=== PATIENT | female | born 1970 | race Two or more races ===

== ENCOUNTER 2023-10-25 10:30 | Inpatient (IN) | payer OTHER ==
[~2023-10-25] VITALS: Ht 154.9 cm; Wt 73.9 kg
[~2023-10-25 10:30] MED LIST: AMBIEN10 MG PO; Colace 100MG PO; NORCO 5/325 TAB1 TAB PO
[2023-10-25] MEDS ORDERED: GRALISE600 MG PO (12:39)
[2023-10-25] MEDS ORDERED: TRAZODONE HCL100 MG PO (12:40)
[2023-10-25] MEDS ORDERED: TENORMIN50 M1 PO (12:40)
[2023-10-25] MEDS ORDERED: ACID REDUCER20 M1 PO (12:40)
[2023-10-25] MEDS ORDERED: ZOLOFT100 MG PO (12:40)
[2023-10-25] MEDS ORDERED: PHENERGAN25 MG PO (12:41)
[2023-10-25] MEDS ORDERED: REPATHA SU140 MG/1 M SUBCUTANEO (12:42)
[2023-10-25] MEDS ORDERED: KEVZARA200 MG/1.2 (12:42)
[2023-10-25] MEDS ORDERED: FOLIC ACID0.8 M1 PO (12:43)
[2023-10-25] MEDS ORDERED: B12 ACTIVE1000 MCG PO (12:43)
[2023-10-30] MEDS ORDERED: HYDROXYCHLOROQ200 MG (08:54)
[2023-10-30] MEDS ORDERED: DIVALPROEX SOD500 MG (08:54)
[2023-10-30] MEDS ORDERED: ATORVASTATIN CA40 MG (08:54)
[2023-10-30] MEDS ORDERED: OMEPRAZOLE20 MG (08:55)
[2023-10-30] MEDS ORDERED: MELOXICAM15 MG (09:16)
[2023-10-30] MEDS ORDERED: GABAPENTIN600 MG (09:16)
[2023-10-30] MEDS ORDERED: TIZANIDINE HCL4 MG (09:16)
[2023-10-30] MEDS ORDERED: SERTRALINE HCL50 MG (09:17)
[2023-10-30] MEDS ORDERED: REPATHA SY140 MG/1 M (09:17)
[2023-10-30] MEDS ORDERED: BOTOX200 UNIT (09:17)
[2023-10-30] MEDS ORDERED: NORFLEX100MG (09:17)
[2023-10-30] MEDS ORDERED: METHOTREXATE2.5 MG (09:17)
[2023-10-30] MEDS ORDERED: VANCOMYCIN HCL 1,000 MG VIAL ONE (09:49)
[2023-10-30] MEDS ORDERED: CEFAZOLIN SODIUM 1,000 MG VIAL ONE ×2 (09:49→16:27)
[2023-10-30] MEDS ORDERED: ACETAMINOPHEN-1 EAC2 PO (10:41)
[2023-10-30] MEDS ORDERED: MEDROLPACK PO (10:42)
[2023-10-30] MEDS ORDERED: AMOX-CLAV 875-1 EACH PO (10:42)
[2023-10-30] MEDS ORDERED: GABAPENTIN100 M2 PO (10:43)
[2023-10-30] MEDS ORDERED: COLACE100 MG PO (10:43)
[2023-10-30] MEDS ORDERED: NEURONTIN800 MG PO (10:44)
[2023-10-30] MEDS ORDERED: ENALAPRILAT DIHYDRATE 1.25 MG/ML VIAL IV PRN (11:00)
[2023-10-30] MEDS ORDERED: PROMETHAZINE HCL 50 MG/ML AMPUL IM PRN (11:00)
[2023-10-30] MEDS ORDERED: 0.9 % SODIUM CHLORIDE 1,000 ML IV SCH (11:00)
[2023-10-30] MEDS ORDERED: IOVERSOL 320 MG/ML - 50 ML VIAL IV ONE ×2 (11:34→13:15)
[2023-10-30] MEDS ORDERED: METHYLPREDNISOLONE ACETATE 80 MG/ML VIAL ONE (11:34)
[2023-10-30] MEDS ORDERED: MORPHINE SULFATE 4 MG/ML CARTRIDGE IV SCH (13:00)
[2023-10-30] MEDS ORDERED: DOCUSATE SODIUM 100MG CAP PO SCH (13:00)
[2023-10-30] MEDS ORDERED: CEFAZOLIN SODIUM 1,000 MG VIAL IV ONE (13:15)
[2023-10-30] MEDS ORDERED: VANCOMYCIN HCL 1,000 MG VIAL IV ONE (13:15)
[2023-10-30] MEDS ORDERED: METHYLPREDNISOLONE SOD SUCC 125 MG VIAL IV ONE ×2 (13:15)
[2023-10-30] MEDS ORDERED: VANCOMYCIN HCL 1,000 MG VIAL IR ONE (13:15)
[2023-10-30] MEDS ORDERED: METHYLPREDNISOLONE ACETATE 80 MG/ML VIAL IJ ONE (13:15)
[2023-10-30] MEDS ORDERED: METHYLPREDNISOLONE SOD SUCC 125 MG VIAL ONE (16:28)
[2023-10-30] MEDS ORDERED: ATENOLOL 50 MG TABLET PO SCH (17:00)
[2023-10-30] MEDS ORDERED: FAMOtidine 20 MG TABLET PO SCH (17:00)
[2023-10-30] MEDS ORDERED: CEFAZOLIN SODIUM 1,000 MG in 0.9 % SODIUM CHLORIDE 50 ML IV SCH (17:00)
[2023-10-30] MEDS ORDERED: METHYLPREDNISOLONE SOD SUCC 125 MG VIAL IV SCH (17:00)
[2023-10-30] MEDS ORDERED: VANCOMYCIN HCL 1,000 MG VIAL IV SCH (21:00)
[2023-10-30] MEDS ORDERED: GABAPENTIN 800 MG TABLET PO SCH (21:00)
[2023-10-30] MEDS ORDERED: DIPHENHYDRAMINE HCL 50 MG/ML VIAL 1ML IV SCH (21:00)
[2023-10-30] MEDS ORDERED: TRAZODONE HCL 50 MG TABLET PO SCH (21:00)
[2023-10-31] MEDS ORDERED: SODIUM CHLORIDE 0.45 % 1,000 ML IV SCH
[2023-10-31] MEDS ORDERED: ACETAMINOPHEN WITH CODEINE 1 UDTAB TABLET PO PRN (05:00)
[2023-10-31 07:00] LABS: CALCIUM 8.5 mg/dL (8.5-10.1); CREATININE SERUM 0.87 mg/dL (0.55-1.02); GFR 68.64; HEMATOCRIT 31.1 % (36.0-45.00); HEMOGLOBIN 10.9 g/dL (12.0-15.00); MEAN CELL VOLUME 94.8 fL (80.00-100.00); MEAN CORPUSCULAR HEMOGLOBIN 33.3 pg (27.00-32.0); MEAN CORPUSCULAR HGB CONC 35.1 g/dl (32.0-36.0); PLATELET COUNT 208 K/uL (150-450); POTASSIUM 4.43 mEq/L (3.5-5.1); RED BLOOD COUNT 3.28 M/uL (4.00-6.00); RED CELL DISTRIBUTION WIDTH 12.9 % (11.5-14.5)
[2023-10-31] MEDS ORDERED: TAMSULOSIN HCL 0.4 MG CAP PO SCH (09:00)
[2023-10-31] MEDS ORDERED: SERTRALINE HCL 100 MG TABLET PO SCH (09:00)
== END 2023-11-01 08:46 | disposition home or self-care (01) | DRG 455 ==
LOC: O/R 10-30 06:43 → PED 10-30 06:43 → SURH 10-30 10:30 → PED 10-30 15:01 → SURH 10-30 15:30 → PED 11-01 08:46
PROVIDERS: ADMIT Orthopaedic Surgery Orthopaedic Surgery of the Spine; ATTEND Orthopaedic Surgery Orthopaedic Surgery of the Spine
PROC: 0SG1071 Fusion of 2 or more Lumbar Vertebral Joints with Autologous Tissue Substitute, Posterior Approach, Posterior Column, Open Approach (ICD-10-PCS; 2023-10-30)
PROC: 0ST20ZZ Resection of Lumbar Vertebral Disc, Open Approach (ICD-10-PCS; 2023-10-30)
PROC: 07DR0ZZ Extraction of Iliac Bone Marrow, Open Approach (ICD-10-PCS; 2023-10-30)
PROC: 4A1104G Monitoring of Peripheral Nervous Electrical Activity, Intraoperative, Open Approach (ICD-10-PCS; 2023-10-30)
PROC: XRGC0R7 Fusion of 2 or more Lumbar Vertebral Joints using Custom-Made Anatomically Designed Interbody Fusion Device, Open Approach, New Technology Group 7 (ICD-10-PCS; principal; 2023-10-30 15:30)
DX: M43.16 Spondylolisthesis, lumbar region (principal); M51.36 Other intervertebral disc degeneration, lumbar region; M48.062 Spinal stenosis, lumbar region with neurogenic claudication

== ENCOUNTER 2025-05-20 08:00 | Outpatient (CLI) | payer OTHER ==
[~2025-05-20] VITALS: Ht 154.9 cm; Wt 74.4 kg
[~2025-05-20 08:00] MED LIST changes: +ACETAMINOPHEN-1 EAC2 PO; +ACID REDUCER20 M1 PO; +AMOX-CLAV 875-1 EACH PO; +ATORVASTATIN CA40 MG; +B12 ACTIVE1000 MCG PO; +BOTOX200 UNIT; +COLACE100 MG PO; +DIVALPROEX SOD500 MG; +FOLIC ACID0.8 M1 PO; +GABAPENTIN100 M2 PO; +GABAPENTIN600 MG; +GRALISE600 MG PO; +HYDROXYCHLOROQ200 MG; +KEVZARA200 MG/1.2; +MEDROLPACK PO; +MELOXICAM15 MG; +METHOTREXATE2.5 MG; +NEURONTIN800 MG PO; +NORFLEX100MG; +OMEPRAZOLE20 MG; +PHENERGAN25 MG PO; +REPATHA SU140 MG/1 M SUBCUTANEO; +REPATHA SY140 MG/1 M; +SERTRALINE HCL50 MG; +TENORMIN50 M1 PO; +TIZANIDINE HCL4 MG; +TRAZODONE HCL100 MG PO; +ZOLOFT100 MG PO
[2025-05-20 09:57] LABS: BASO % 0.2 % (0.1-1.2); EOS # 0.09 (0.04-0.54); EOS % 1.9 % (0.7-7.0); LYMPH # 1.76 (1.18-3.74); LYMPH % 37.6 % (19.3-53.1); MEAN PLATELET VOLUME 10.20 fl (9.4-12.4); MONO # 0.30 (0.24-0.82); MONO % 6.4 % (4.7-12.5); NEUT # 2.51 (1.56-6.13); NEUT % 53.7 % (34.0-71.1); RED CELL DISTRIBUTION WIDTH 12.8 % (11.6-14.4)
[2025-05-20 10:14] VITALS: BP 111/74
[2025-05-20 10:26] LABS: INR 1.0
[2025-05-20 11:09] LABS: BUN CREA RATIO 12.0 (7.0-25.0); CREATININE SERUM 1.17 mg/dL (0.55-1.02); GFR 48.39; GLUCOSE FASTING 94.0 mg/dL (65-100); OSMOLALITY SERUM 287.0 MOSM/KG (275-295); T4 TOTAL 6.69 UG/DL (4.8-13.9); TSH 0.817 uIU/mL (0.358-3.74)
[2025-05-20 11:09] LABS: URINE APPEARANCE Clear; URINE BILIRRUBIN Negative (NEGATIVE); URINE BLOOD Negative; URINE COLOR Yellow; URINE GLUCOSE Negative (NEGATIVE); URINE KETONE Trace (NEGATIVE); URINE LEUKOCYTE Negative; URINE NITRATE Negative; URINE UROBILINOGEN 0.2 E.U./dl
[2025-05-20 11:11] LABS: URINE BACTERIA 31.2 uL (0.0-1933); URINE CAST 1.61 uL (0.0-1.40); URINE EPITHELIAL CELLS 18.1 uL (0.0-38.8); URINE RBC 6.5 uL (0.0-20.8); URINE WBC 2.0 uL (0.0-23.2)
[2025-05-20 11:21] LABS: URINE PROTEIN 100 (NEGATIVE)
[2025-05-20 11:50] LABS: COVID-19 AG POSITIVE (NEGATIVE)
[2025-05-20] MEDS ORDERED: NORFLEX (13:57)
[2025-05-20] MEDS ORDERED: OMEPRAZOLE MAGN20 MG (13:57)
[2025-05-20] MEDS ORDERED: CHOLECALCIFEROL (13:58)
== END 2025-05-20 08:15 | disposition home or self-care (01) ==
LOC: RAD 08:00 → SURG 05-25 07:00 → EDSTATUS 05-25 10:30 → SURG 05-25 10:30
PROVIDERS: ATTEND Orthopaedic Surgery Orthopaedic Surgery of the Spine
DX: M50.01 Cervical disc disorder with myelopathy, high cervical region (principal); M50.21 Other cervical disc displacement, high cervical region; U07.1 COVID-19; Z03.818 Encounter for observation for suspected exposure to other biological agents ruled out; Z20.828 Contact with and (suspected) exposure to other viral communicable diseases